=== PATIENT | female | born 1970 | race Two or more races ===

== ENCOUNTER 2021-06-29 08:21 | Emergency (ER) | payer MEDICAID, OTHER ==
[~2021-06-29] VITALS: Ht 152.4 cm; Wt 77.1 kg
[2021-06-29 09:26] LABS: Basophils # (auto) 0 10 ^3/uL (0-0.2); Basophils % (auto) 0.6 % (0.0-2.0); Eosinophils # (auto) 0.1 10 ^3/uL (0-0.8); Eosinophils % (auto) 1.7 % (0.0-7.0); Hemoglobin 12.7 g/dL (12.2-16.2); Lymphocytes # (auto) 0.7 10 ^3/uL (0.4-5.4); Lymphocytes % (auto) 11.7 % (10.0-50.0); Mean Corpuscular Hemoglobin 33.1 pg (28.0-32.0); Mean Corpuscular Hgb Conc. 34.5 g/dL (32.0-36.0); Monocytes # (auto) 0.3 10 ^3/uL (0-1.3); Monocytes % (auto) 4.4 % (0.0-12.0); Neutrophils # (auto) 4.8 10 ^3/uL (1.6-8.6); Neutrophils % (auto) 81.6 % (37.0-80.0); Nucleated Red Blood Cells % 0.1 %; Red Blood Cells 3.85 10^6/uL (4.0-5.20); Red Cell Distribution Width 15.4 % (11.8-14.3); White Blood Cell 5.9 10^3/uL (4.4-10.8)
[2021-06-29 09:47] LABS: INR 1.09 (0.9-1.15); Partial Thromboplastin Time 25.9 sec (23.6-33.0)
[2021-06-29 09:50] LABS: Albumin 3.3 g/dL (3.4-5.0); Anion Gap 6 (5-15); Blood Urea Nitrogen 14 mg/dL (7-18); Calcium 8.6 mg/dL (8.5-10.1); Carbon Dioxide 24 mmol/L (21-32); Chloride 110 mmol/L (98-107); Glucose 150 mg/dL (74-106); Magnesium 2.2 mg/dL (1.6-2.6); Potassium 3.7 mmol/L (3.5-5.1); Sodium 140 mmol/L (136-145)
[2021-06-29 09:55] LABS: Alanine Aminotransferase 21 U/L (13-56); Alkaline Phosphatase 102 U/L (45-117); Aspartate Aminotransferase 13 U/L (15-37); BUN/Creatinine Ratio 21.2; GFR African American 121 mL/min; GFR Non-African American 100 mL/min; Total Protein 6.2 g/dL (6.4-8.2)
[2021-06-29 10:58] LABS: Urine Bacteria FEW /hpf (None Seen); Urine Blood Negative /uL (Negative); Urine Specific Gravity 1.007 (1.001-1.035); Urine WBC 5 /hpf (0 - 5)
[2021-06-29] MEDS ORDERED: cefTRIAXone 1GM/50ML D5W 50 ML IV ONE (12:30)
[2021-06-29 12:53] VITALS: BP 118/74
== END 2021-06-29 12:54 | disposition home or self-care (01) ==
LOC: EDBD 08:21 → ER 08:21
DX: R07.89 Other chest pain (principal); I47.1 Supraventricular tachycardia; N39.0 Urinary tract infection, site not specified; E11.65 Type 2 diabetes mellitus with hyperglycemia; M19.90 Unspecified osteoarthritis, unspecified site
CPT/HCPCS: 36415; 71046; 80053; 81001; 83735; 84443; 84484; 85025; 85379; 85610; 85730; 93005; 96374; 99285; J0696

== ENCOUNTER 2023-04-18 12:33 | Emergency (ER) | payer MEDICAID ==
[~2023-04-18] VITALS: Ht 152.4 cm; Wt 74.7 kg
[2023-04-18 12:53] VITALS: BP 121/65
[2023-04-18] MEDS: cefTRIAXone SOD 1,000 MG VL IM ONE ×2 (13:32→13:41)
[2023-04-18] MEDS ORDERED: cefTRIAXone SOD 1,000 MG VL IM ONE (13:45)
[2023-04-18] MEDS ORDERED: AZIT500T66 PO (14:30)
[2023-04-18] MEDS ORDERED: PROM1SOL4 PO (14:30)
== END 2023-04-18 14:38 | disposition home or self-care (01) ==
LOC: ER 12:33
DX: J20.9 Acute bronchitis, unspecified (principal); J03.90 Acute tonsillitis, unspecified; E11.9 Type 2 diabetes mellitus without complications
CPT/HCPCS: 71046; 82962; 96372; 99283; J0696

== ENCOUNTER 2023-06-13 18:24 | Emergency (ER) | payer MEDICAID, OTHER ==
[~2023-06-13] VITALS: Ht 162.6 cm; Wt 74.3 kg
[~2023-06-13 18:24] MED LIST: AZIT500T66 PO; PROM1SOL4 PO
[2023-06-13] MEDS ORDERED: IBUP1TAB5 PO (21:04)
[2023-06-13] MEDS ORDERED: CYCL-839 PO (21:04)
[2023-06-13] MEDS ORDERED: HYDROcodone-ACET 5/325MG TAB PO ONE (21:15)
[2023-06-13 22:28] VITALS: BP 141/67; PULSE 68; RESP 18; TEMP 98; O2SAT 96
== END 2023-06-13 23:06 | disposition home or self-care (01) ==
LOC: ER 18:24
DX: S43.491A Other sprain of right shoulder joint, initial encounter (principal); S83.8X2A Sprain of other specified parts of left knee, initial encounter; S83.8X1A Sprain of other specified parts of right knee, initial encounter; S33.5XXA Sprain of ligaments of lumbar spine, initial encounter; M17.0 Bilateral primary osteoarthritis of knee; M19.90 Unspecified osteoarthritis, unspecified site; E11.9 Type 2 diabetes mellitus without complications; Z79.1 Long term (current) use of non-steroidal anti-inflammatories (NSAID); Z79.899 Other long term (current) drug therapy; W18.39XA Other fall on same level, initial encounter; Y93.89 Activity, other specified; Y92.89 Other specified places as the place of occurrence of the external cause; Y99.8 Other external cause status
CPT/HCPCS: 72100; 73030; 73560